=== PATIENT | female | born 1950 | race Caucasian/White ===

== ENCOUNTER → 2020-06-11 | Outpatient (CLI) | payer OTHER ==
[~2020-06-11] MED LIST: ALEVE220 M1; ALEVE220 M1 PO; ASPIRIN81 M2 PO; BIOTIN10000 MC1 PO; CALCIUM 600 +1 EAC5 PO; CYCLOBENZAPRINE10 MG PO; CYCLOBENZAPRINE5 MG PO; DILTIAZEM 24HR360 M1 PO; DILTIAZEM ER180 M1 PO; FISH OIL 1,0001 EAC5 PO; GLUCOSAMINE &1 EAC1 PO; HYDROCODON-ACE1 EACH PO; HYDROCODONE-APA1 TA1 PO; LISINOPRIL20 MG PO; LORTAB 5-500 T1 EAC1; MIRALAX17 GM PO; MOBIC15 MG PO; MULTIVITAMINS PO; NEURONTIN 300300 M1 PO; ROBAXIN 750 MG750 M1; VAGIFEM10 MCG VAG; VITAMIN D1000 UNI1 PO
== END ==
LOC: SJCVCIMAG 08:34
PROVIDERS: ATTEND Internal Medicine Cardiovascular Disease
DX: I07.1 Rheumatic tricuspid insufficiency (principal); R01.1 Cardiac murmur, unspecified